=== PATIENT | female | born 1940 | race Caucasian/White ===

== ENCOUNTER 2021-01-25 19:15 | Emergency (ER) | payer MEDICARE ==
[~2021-01-25] VITALS: Ht 160 cm; Wt 93.2 kg
[~2021-01-25 19:15] MED LIST: CYCL10TA2 PO; TRIA1CAP3 PO; TRIA1TAB5 PO
[2021-01-25] MEDS ORDERED: HYDROcodone/APAP 5/325MG 1 TAB TABLET PO ONE (23:00)
--- NOTE | 2021-01-25 23:00 | PHYS DOC ---
Past Medical History Past Medical History: Cancer (breast ca treated 6 yrs ago), Hypertension, Pneumonia, Other (MICHA PEREZ DEVELOPMENT GEOLOGIST) Past Surgical History: Cholecystectomy (MICHA PEREZ DEVELOPMENT GEOLOGIST) Smoking Status: Current Every Day Smoker Alcohol Use: Occasionally Drug Use: None (MICHA PEREZ APRN) General Adult EDM: Chief Complaint: MECHANICAL FALL HPI: HPI: Patient is a 80 year old female with a history of hypertension who presents to the ED today complaining of mild intermittent low back pain that began on Monday after she fell down one step landing on the edge of a concrete step. Patient denies any loss of consciousness, denies hitting her head or neck on the ground or step. Denies any nausea, vomiting. Denies any loss of bowel/bladder function. Denies any pain radiating to bilateral lower extremities. Denies any numbness or tingling to bilateral lower extremities. She states her pain is wor se on sitting on her buttocks. Denies being on any blood thinners. (MICHA PEREZ DEVELOPMENT GEOLOGIST) Review of Systems: Review of Systems: Constitutional: Denies fever or chills. [] GI: Denies abdominal pain, nausea, vomiting, bloody stools or diarrhea. [] : Denies dysuria. [] Musculoskeletal: Reports low back pain Integument: Denies rash. [] Neurologic: Denies headache, focal weakness or sensory changes. [] Psychiatric: Denies depression or anxiety. [] (MICHA PEREZ DEVELOPMENT GEOLOGIST) Heart Score: C/O Chest Pain: N/A Risk Factors: Risk Factors: DM, Current or recent (<one month) smoker, HTN, HLP, family history of CAD, obesity. Risk Scores: Score 0 - 3: 2.5% MACE over next 6 weeks - Discharge Home Score 4 - 6: 20.3% MACE over next 6 weeks - Admit for Clinical Observation Score 7 - 10: 72.7% MACE over next 6 weeks - Early Invasive Strategies (MICHA PEREZ DEVELOPMENT GEOLOGIST) Allergies: Allergies: Allergies Coded Allergies Type Severity Reaction Last Updated Verified NSAIDS (Non-Steroidal Anti-Inflamma Allergy Severe KRYSTAL 08/26/13 Yes (MICHA PEREZ DEVELOPMENT GEOLOGIST) Physical Exam: PE: Constitutional: Well developed, well nourished, no acute distress, non-toxic appearance. [] Abdomen: Bowel sounds normal, soft, no tenderness, no masses, no pulsatile masses. [] Skin: Warm, dry, no erythema, no rash. [] Back: Mild tenderness on palpation of midline lumbar spine, paraspinal muscle tenderness to the right lumbar spine, no CVA tenderness. Negative straight leg raises bilaterally Extremities: No tenderness, no cyanosis, no clubbing, ROM intact, no edema. [] Neurologic: Alert and oriented X 3, normal motor function, normal sensory function, no focal deficits noted. [] Psychologic: Affect normal, judgement normal, mood normal. [] (MICHA PEREZ APRN) EKG: EKG: [] (MICHA PEREZ APRN) Radiology/Procedures: Radiology/Procedures: []PROCEDURE: CT LUMBAR SPINE WO CONTRAST Exam: CT of lumbar spine without contrast INDICATION: Fall, back pain TECHNIQUE: Sequential axial images through the lumbar spine obtained without IV contrast. Sagittal and coronal reformatted images were reconstructed from the axial data and reviewed. Exposure: One or more of the following in the visualized dose reduction techniques were utilized for this examination: 1. Automated exposure control 2. Adjustment of the MA and/or KV according to patient size 3. Use of iterative of reconstructive technique Comparisons: None FINDINGS: Vertebral body heights and alignment are well-maintained. There is a minimally displaced fracture involving the left transverse process of L3. No significant spondylotic change in the cervical spine. Visualized paraspinal soft tissues are unremarkable. IMPRESSION: Minimally displaced fracture involving the left transverse process of L3. Electronically signed by: Kulwinder Vences MD (01/25/2021 11:26 PM) [facility] DICTATED and SIGNED BY: KULWINDER VENCES MD DATE: 01/25/21 [id number] (MICHA PEREZ APRN) Course & Med Decision Making: Course & Med Decision Making Pertinent Labs and Imaging studies reviewed. (See chart for details) This is a 80-year-old female patient presenting to the ED today to evaluated after falling yesterday. Patient is complaining of low back pain. Patient is ambulating on her own. CT of the lumbar spine was noted for minimally displaced fracture involving the left transverse process of L3. Spoke with Emperatriz HORNER for neurosurgery, she stated patient can go home, rest, ice, given pain prescription medicine. Follow-up with PCP (MICHA PEREZ APRN) Course & Med Decision Making I have participated in the care of this patient and I have reviewed and agree with all pertinent clinical information above including history, exam, and recommendations. Ger Wilkerson DO (GER WILKERSON DO) Inga Disclaimer: Inga Disclaimer: This electronic medical record was generated, in whole or in part, using a voice recognition dictation system. (MICHA PEREZ APRN) Departure Departure Impression: Primary Impression: Lumbar transverse process fracture Qualified Codes: S32.009A - Unspecified fracture of unspecified lumbar vertebra, initial encounter for closed fracture Additional Impression: Fall Qualified Codes: W19.XXXA - Unspecified fall, initial encounter Disposition: HOME / SELF CARE / HOMELESS Condition: STABLE Referrals: RODERICK SALGADO MD (PCP) Follow-up next week Patient Instructions: Lumbar Fracture Additional Instructions: You were evaluated in the emergency room and noted to have a minimally displaced fracture involving the left transverse process of L3. Please rest, apply ice to your low back. Take the prescribed pain medicine as needed. Follow-up with your primary care doctor next week Scripts Cyclobenzaprine Hcl (CYCLOBENZAPRINE HCL) 10 Mg Tablet 1 TAB PO TID, #30 TAB Prov: MICHA PEREZ APRN 01/26/21 Hydrocodone Bit/Acetaminophen (HYDROCODONE-APAP 5-325 ) 1 Tab Tablet 1 TAB PO PRN Q6HRS PRN for PAIN, #14 TAB 0 Refills Prov: MICHA PEREZ APRN 01/26/21 MICHA PEREZ APRN Jan 25, 2021 23:00 GER WILKERSON DO Jan 26, 2021 00:44
--- NOTE | 2021-01-25 23:29 | RAD ---
Exam: CT of lumbar spine without contrast INDICATION: Fall, back pain TECHNIQUE: Sequential axial images through the lumbar spine obtained without IV contrast. Sagittal an d coronal reformatted images were reconstructed from the axial data and reviewed. Exposure: One or more of the following in the visualized dose reduction techniques were utilized for this examination: 1. Automated exposure control 2. Adjustment of the MA and/or KV according to patient size 3. Use of iterative of reconstructive technique Comparisons: None FINDINGS: Vertebral body heights and alignment are well-maintained. There is a minimally displaced fracture involving the left transverse process of L3. No significant spondylotic change in the cervical spine. Visualized paraspinal soft tissues are unremarkable. IMPRESSION: Minimally displaced fracture involving the left transverse process of L3. Electronically signed by: Kulwinder Caotes MD (01/25/2021 11:26 PM) [facility]
[2021-01-26] MEDS ORDERED: CYCL10TA2 PO (00:11)
[2021-01-26] MEDS ORDERED: HYDR-2761 PO (00:11)
[2021-01-26 00:18] VITALS: BP 162/71
== END 2021-01-26 00:40 | disposition home or self-care (01) ==
LOC: ER 19:15
DX: S32.009A Unspecified fracture of unspecified lumbar vertebra, initial encounter for closed fracture (principal); I10 Essential (primary) hypertension; F17.200 Nicotine dependence, unspecified, uncomplicated; Z90.49 Acquired absence of other specified parts of digestive tract; W10.8XXA Fall (on) (from) other stairs and steps, initial encounter; Y93.89 Activity, other specified; Y92.89 Other specified places as the place of occurrence of the external cause; Y99.8 Other external cause status
CPT/HCPCS: 72131; 99284-25